=== PATIENT | female | born 1955 | race Caucasian/White ===

== ENCOUNTER 2016-09-27 14:22 | Emergency (ER) | payer OTHER ==
[~2016-09-27] VITALS: Ht 149.9 cm; Wt 63.5 kg
--- NOTE | 2016-09-27 17:01 | PHYS DOC ---
Past Medical History Past Medical History: No Pertinent History Past Surgical History: Additional Past Surgical Histo: fallopian tube rupture, rhinoplasty Alcohol Use: Occasionally Drug Use: None Adult General Chief Complaint Chief Complaint: MECHANICAL FALL HPI HPI 61-year-old female who's had a fall in which she states the stool slipped underneath her and she fell backwards and hit the occipital area of her head with no loss consciousness. Patient primary only complains of mild lumbosacral pain as well as significant occipital headache. Patient is not on any blood thinners and has had no bleeding disorder history that she is aware of. She does not state any significant health problems. She has not taken any medications for her pain. Pt is not requesting any pain medication at this time. Pt states her pain is rated a 7/10 on the pain scale. She additionally reports mild neck tenderness that is generalized. She denies any chest pain or SOB. Review of Systems Review of Systems Constitutional: Denies fever or chills [] Eyes: Denies change in visual acuity, redness, or eye pain [] HENT: Denies nasal congestion or sore throat [] Respiratory: Denies cough or shortness of breath [] Cardiovascular: No additional information not addressed in HPI [] GI: Denies abdominal pain, nausea, vomiting, bloody stools or diarrhea [] : Denies dysuria or hematuria [] Musculoskeletal: Denies back pain or joint pain [] Integument: Denies rash or skin lesions [] Neurologic: Has headache, denies focal weakness, denies sensory changes [] Endocrine: Denies polyuria or polydipsia [] Current Medications Current Medications Current Medications Medications (Trade) Dose Ordered Sig/[facility] Start Time Stop Time Status Last Admin Dose Admin Acetaminophen (Tylenol) 1,000 mg 1X ONCE 09/27/16 17:30 09/27/16 17:31 DC Allergies Allergies Allergies Coded Allergies Type Severity Reaction Last Updated Verified ibuprofen Allergy Intermediate Nausea and Vomiting 09/27/16 Yes Physical Exam Physical Exam Constitutional: Well developed, well nourished, no acute distress, non-toxic appearance. [] HENT: Normocephalic, atraumatic, bilateral external ears normal, oropharynx moist, no oral exudates, nose normal. [] Eyes: PERRLA, EOMI, conjunctiva normal, no discharge. [] Neck: Normal range of motion, no tenderness, supple, no stridor. [] Cardiovascular:Heart rate regular rhythm, no murmur [] Lungs & Thorax: Bilateral breath sounds clear to auscultation [] Abdomen: Bowel sounds normal, soft, no tenderness, no masses, no pulsatile masses. [] Skin: Warm, dry, no erythema, no rash. [] Back: No tenderness, no CVA tenderness. [] Extremities: No tenderness, no cyanosis, no clubbing, ROM intact, no edema. [] Neurologic: Alert and oriented X 3, normal motor function, normal sensory function, no focal deficits noted. [] Psychologic: Affect normal, judgement normal, mood normal. [] Current Patient Data Vital Signs Vital Signs Date Time Temp Pulse Resp B/P Pulse Ox O2 Delivery O2 Flow Rate FiO2 09/27/16 15:50 98.1 86 18 148/89 97 Room Air 98.1 EKG EKG [] Radiology/Procedures Radiology/Procedures CT of the head without contrast demonstrated the following: No acute intracranial finding. Suspected left posterior scalp contusion. Course & Med Decision Making Course & Med Decision Making Pertinent Labs and Imaging studies reviewed. (See chart for details) 61-year-old female who fell back in her head was a noted scalp hematoma will obtain a head CT to rule out any acute traumatic bleed of her brain. If negative , the patient will be discharged home. I'll be giving her a dose of Tylenol and apartment to help her symptoms. CT of her head without contrast did not demonstrate any findings other than a left posterior scalp contusion. I'll be discharging her home with strict instruction follow closely with her primary care doctor and to take tylenol as needed for her pain. Dragon Disclaimer Dragon Disclaimer This electronic medical record was generated, in whole or in part, using a voice recognition dictation system. Departure Departure Impression: Primary Impression: Scalp contusion Disposition: ADMITTED INPATIENT Admitting Physician: Other Condition: STABLE Referrals: NO PCP (PCP) Patient Instructions: Head Injury, Adult, [id number] Additional Instructions: Please follow up with your primary doctor in the next 2-3 days for your head injury. Take tylenol as needed for your symptoms. Return to the ER if you develop any worsening of your symptoms. KARLENE DAWKINS DO Sep 27, 2016 17:01
[2016-09-27] MEDS ORDERED: ACETAMINOPHEN 500 MG TABLET PO ONE (17:30)
--- NOTE | 2016-09-27 17:36 | RAD ---
PROCEDURE Head CT without contrast. HISTORY Fall. TECHNIQUE Computed tomographic images of the head were obtained without contrast. One or more of the following individualized dose reduction techniques were utilized for this examination: 1. Automated exposure control; 2. Adjustment of the mA and/or kV according to patient size; 3. Use of iterative reconstruction technique. COMPARISON None. FINDINGS There is no acute or subacute hemorrhage. There is no mass effect or midline shift. There is no hydrocephalus. The jarrell and white matter differentiation pattern is intact. The orbits, visualized portions of the paranasal sinuses and mastoid air cells are unremarkable. There is a suspected left posterior scalp contusion. No fracture is seen. IMPRESSION 1. No acute intracranial finding. 2. Suspected left posterior scalp contusion. Electronically signed by: More Rai (Sep 27, 2016 17:34:39)
[2016-09-27 18:00] VITALS: BP 137/81
== END 2016-09-27 18:35 | disposition home or self-care (01) ==
LOC: ER 14:22
DX: S00.03XA Contusion of scalp, initial encounter (principal); Z88.8 Allergy status to other drugs, medicaments and biological substances; W18.09XA Striking against other object with subsequent fall, initial encounter; Y93.89 Activity, other specified; Y99.8 Other external cause status; Y92.89 Other specified places as the place of occurrence of the external cause
CPT/HCPCS: 70450; 99284-25